=== PATIENT | male | born 1965 | race Caucasian/White ===

== ENCOUNTER 2016-12-17 07:03 | Observation (INO) | payer OTHER ==
[2016-12-08 12:00] VITALS: BMI 31.0
[~2016-12-17] VITALS: Ht 172.7 cm; Wt 92.3 kg
[~2016-12-17 07:03] MED LIST: ALBU2SYP9 INH; ASPI81TA28 PO; ATOR-26 PO; BRL90 PO; CEFAZOLIN 2000 MG/60 ML D5W IV SCH; CLB/200 PO; FURO-85 PO; ISOS30TA3 PO; LACTATED RINGER'S 1000ML 1,000 ML IV SCH; LISI-729 PO; METO-217 PO; NTRGSL/4 UT
[2016-12-17] MEDS ORDERED: BUPIVACAINE 0.5 % 5 MG/1 ML MPF 30ML VIAL ONE ×2 (07:18→07:34)
[2016-12-17] MEDS ORDERED: LIDOCAINE HCL 1% 20 ML VIAL ONE ×2 (07:18→07:34)
[2016-12-17] MEDS ORDERED: BACITRACIN 50000 UNIT VIAL ONE (07:19)
[2016-12-17] MEDS ORDERED: PROPOFOL IV EMULSION 10 MG/ML 20 ML VIAL IV ONE (07:37)
[2016-12-17] MEDS ORDERED: LIDOCAINE HCL 2% 2 ML VIAL (20MG/ML) ONE (07:37)
[2016-12-17 07:38] VITALS: BP 103/67; PULSE 54; TEMP 36.4; O2SAT 98; BMI 31.0
[2016-12-17] MEDS ORDERED: FENTANYL CITRATE INJ 50 MCG/1 ML 2 ML VIAL ONE (07:38)
[2016-12-17] MEDS ORDERED: KETAMINE HCL INJ 50 MG/ML 10 ML VIAL ONE (07:38)
[2016-12-17] MEDS ORDERED: MIDAZOLAM HCL 1 MG/ML 2ML VIAL ONE (07:38)
--- NOTE | 2016-12-17 07:54 | History and Physical ---
History & Physical Date Dec 17, 2016. Chief Complaint sob History of Present Illness The patient is a 51 year old male with complaints of sob Past Medical/Surgical History icm ef 20% rbbb chronic systolic HF, nyha class II cad hld heterozygous for factor 5 mutation h/o cva PSH hip replacement cath Additional History Hepatic Disease: No Endocrine Disorder: No Kidney Disease: No Hypertension: Yes Heart Disease: Yes Bleeding Tendencies: No Infectious Diseases: No Allergies Coded Allergies: NO KNOWN DRUG ALLERGIES (Verified Allergy, Unknown, none, 12/17/16) Home Medications Scheduled Aspirin (Aspirin Ec), 81 MG PO DAILY Atorvastatin (Lipitor), 1 TAB PO DAILY Celecoxib (CeleBREX), 1 CAP PO QDB Furosemide (Lasix), 1 TAB PO DAILY Isosorbide Mononitrate Ext Rel (Imdur Ext Rel), 0.5 TAB PO DAILY Lisinopril (Prinivil), 5 MG PO QAM Metoprolol Succinate (Toprol Xl), 50 MG PO DAILY Nitroglycerin (Nitrostat), 0.4 MG UT PRN Ticagrelor (Brilinta), 1 TAB PO BID Scheduled PRN Albuterol Sulf (Ventolin), 2 PUFF INH Q6 PRN for Shortness of Breath Physical Examination Skin: warm/dry Eyes: EOMI, sclerae normal ENT: normal ENT inspection Head: normocephalic, atraumatic Neck: supple Respiratory/Chest: lungs clear, normal breath sounds Cardiovascular: regular rate, rhythm, no edema, no murmur Abdomen / GI: normal bowel sounds Back: normal inspection Extremities: normal inspection Neurologic/Psych: alert, oriented x 3 Diagnosis icm ef 20% rbbb chronic systolic HF, nyha class II cad hld heterozygous for factor 5 mutation h/o cva ASA Classification: ASA Class II Plan of Treatment recommend biv icd
--- NOTE | 2016-12-17 10:27 | [facility] Post Operative Brief Note ---
Immediate Operative Summary Operative Date Dec 17, 2016. Pre-Operative Diagnosis ICM, CHRONIC SYSTOLIC HF, NYHA CLASS II, RBS QRS 168MS Post-Operative Diagnosis SAME Procedure(s) Performed BIV ICD WITH PERIPHERAL VENOGRAM Surgeon TAL VELAZQUEZ Managing Partner Surgeon(s) NONE Estimated Blood Loss <20CC Findings NONE Fluids (cc crystalloids) 300CC Specimens NONE Drains NONE Anesthesia 2MG VERSED, 100MCG FENTANYL, 300MG PROPOFOL, 40MG KETAMINE Complication(s) None Disposition PCU
[2016-12-17] MEDS ORDERED: ACETAMINOPHEN 325 MG TAB PO PRN (10:30)
[2016-12-17] MEDS ORDERED: OXYCODONE/ACETAMINOPHEN 5-325 TAB PO PRN (10:30)
[2016-12-17] MEDS ORDERED: NITROGLYCERIN 0.4 MG SL PER TAB CHARGE UT PRN (10:30)
--- NOTE | 2016-12-17 10:30 | Discharge Instructions ---
Discharge Instructions Date of Service Dec 17, 2016. Admission Reason for Admission: Cardiomyopathy Discharge Discharge Diagnosis / Problem: ICM Discharge Goals Goal(s): Improve function Activity Recommendations Activity Limitations: as noted below Lifting Limitations: no more than 10 pounds (DO NOT LIFT THE LEFT ELBOW OVER THE LEFT SHOULDER FOR 1 MONTH; DO NOT LIFT MORE THAN 10 POUNDS WITH THE LEFT ARM FOR 2 WEEKS) May Resume Sexual Activity: after one week Shower/Bathe: tomorrow Driving or Machine Use: resume 1 day after discharge . Instructions / Follow-Up Instructions / Follow-Up ACTIVITY RECOMMENDATIONS: * Do not raise affected arm over head for 4 weeks. SPECIAL CARE INSTRUCTIONS: * If bleeding occurs, apply direct pressure to area for 5 minutes. * Call your doctor if you have severe pain, fever, drainage or bleeding at site. * Keep dry for 24 hours. * Keep any scheduled doctor's appointment. * Implant Card - hand held device with website information given. SKIN IRRITATION: * You may experience some redness and/or swelling in the area where radiation was administered. If any skin irritation occurs, please contact your family physician. FOLLOW UP VISIT: Keep any scheduled doctor appointments. Current Hospital Diet Patient's current hospital diet: AHA Diet (Heart Healthy), Low Sodium Diet (2gm Na) Discharge Diet Recommended Diet: AHA Diet (Heart Healthy), Low Sodium Diet (2gm Na) Procedures Procedures Performed: BIV ICD WITH PERIPHERAL VENOGRAM Pending Studies Studies pending at discharge: no Medical Emergencies . Who to Call and When: Medical Emergencies: If at any time you feel your situation is an emergency, please call 911 immediately. . Non-Emergent Contact Non-Emergency issues call your: Housing Court Judge . . "Provider Documentation" section prepared by Velia Pichardo. . VTE Core Measure Inpt VTE Proph given/why not?: Treatment not indicated
--- NOTE | 2016-12-17 10:34 | Discharge Summary ---
Discharge Summary Date of Service Dec 17, 2016. Discharge Summary Admission Date: Discharge Date: Dec 18, 2016 Discharge Disposition: Home Principal Diagnosis: ICM S/P BiV ICD 12/16/2016 Secondary Diagnoses/Problems: CAD h/o PCIs LAD in 2004 followed by thrombus removal and angioplasty to LAD due to in-stent thrombosis 10/2012; s/p PCI to LAD with LULU 06/2016 Chronic systolic HF, NYHA class II RBBB QRS 166ms HLD Heterozygous for Factor 5 Mutation H/o CVA Arthritis s/p left THR Procedures: BiV ICD with peripheral venogram Medication Reconciliation Continued Medications: Albuterol Sulf (Ventolin) 2 Mg/5 Ml Syrp 2 PUFF INH Q6 PRN for Shortness of Breath Aspirin (Aspirin Ec) 81 Mg Tab 81 MG PO DAILY Atorvastatin (Lipitor) 80 Mg Tab 1 TAB PO DAILY for 30 Days, #30 TAB 5 Refills Celecoxib (CeleBREX) 200 Mg Cap 1 CAP PO QDB for 30 Days, #30 CAP 2 Refills Furosemide (Lasix) 20 Mg Tab 1 TAB PO DAILY for 90 Days, #90 TAB 1 Refill Isosorbide Mononitrate Ext Rel (Imdur Ext Rel) 30 Mg Ertab 0.5 TAB PO DAILY for 30 Days Lisinopril (Prinivil) 5 Mg Tab 5 MG PO QAM, TAB Metoprolol Succinate (Toprol Xl) 50 Mg Tabcr 50 MG PO DAILY, #30 TAB Nitroglycerin (Nitrostat) 0.4 Mg Tab 0.4 MG UT PRN, BTL Ticagrelor (Brilinta) 90 Mg Tab 1 TAB PO BID Admission Information Physical Exam (per Admitting): aaox3, NAD Supple No JVD Nrl S1/S2, no murmur CTA b/l No w/r/r soft NT/ND No edema b/l LE No focal deficits Skin intact Hospital Course Pt admitted for elective BiV ICD implant underwent procedure without any complications; Pt was supposed to be monitored overnight but insisted on being discharged home the day of the procedure because he needed to take care of his 70 year old mother. So patient had CXR prior to discharge and was discharged home the evening of procedure Total time spent on discharge = 30 This includes examination of the patient, discharge planning, medication reconciliation, and communication with other providers. Discharge Instructions ACTIVITY RECOMMENDATIONS: * Do not raise affected arm over head for 4 weeks. SPECIAL CARE INSTRUCTIONS: * If bleeding occurs, apply direct pressure to area for 5 minutes. * Call your doctor if you have severe pain, fever, drainage or bleeding at site. * Keep dry for 24 hours. * Keep any scheduled doctor's appointment. * Implant Card - hand held device with website information given. SKIN IRRITATION: * You may experience some redness and/or swelling in the area where radiation was administered. If any skin irritation occurs, please contact your family physician. FOLLOW UP VISIT: Keep any scheduled doctor appointments.
[2016-12-17] MEDS ORDERED: IV FLUIDS COMPLETED PRN (11:00)
[2016-12-17 11:54] VITALS: BP 115/75; PULSE 60; TEMP 36.4; O2SAT 97; Ht 172.7 cm; Wt 92.3 kg
--- NOTE | 2016-12-17 14:12 | Anesthesiology Progress Note ---
Anesthesia Post Op Note Date & Time Dec 17, 2016 at 14:12 Vital Signs Pain Intensity: 7.0 Vital Signs Past 12 Hours Date Time Temp Pulse Resp B/P (MAP) Pulse Ox O2 Delivery O2 Flow Rate FiO2 12/17/16 12:00 Room Air 12/17/16 11:54 36.4 60 20 115/75 97 Room Air 12/17/16 10:50 56 16 112/76 (88) 98 Room Air 12/17/16 10:45 60 16 112/74 (87) 98 Nasal Cannula 5 12/17/16 10:40 60 16 110/77 (88) 98 Nasal Cannula 5 12/17/16 10:35 64 16 106/74 (85) 98 Nasal Cannula 5 12/17/16 10:30 66 16 109/74 (86) 98 Nasal Cannula 5 12/17/16 10:27 61 16 102/67 (79) 98 Nasal Cannula 5 12/17/16 10:22 63 16 104/67 (79) 98 Nasal Cannula 5 12/17/16 07:38 36.4 54 18 103/67 (79) 98 Room Air Notes Mental Status: alert / awake / arousable, participated in evaluation Pt Amnestic to Procedure: Yes Nausea / Vomiting: adequately controlled Pain: adequately controlled Airway Patency, RR, SpO2: stable & adequate BP & HR: stable & adequate Hydration State: stable & adequate Anesthetic Complications: no major complications apparent
[2016-12-17 15:01] VITALS: BP 115/75; PULSE 60; TEMP 36.4; O2SAT 97
--- NOTE | 2016-12-17 15:09 | DIAGNOSTIC IMAGING REPORT ---
CHEST 2 VIEWS ROUTINE CLINICAL HISTORY: EXACT TIME ORDERED Evaluate for pneumothorax and lead placement COMPARISON STUDY: No previous studies for comparison. FINDINGS: There is no pneumothorax following placement of a left subclavian pacer maker/AICD. One lead tip projects over the right atrial appendage with 2 lead tips projecting over the right ventricle. There is no evidence of pulmonary edema. Mild cardiomegaly is noted. Note is made of a 7 mm nodular density within the right midlung. IMPRESSION: 1. No pneumothorax following placement of a left subclavian pacer/AICD. 2. 7 mm nodular density within the right midlung. This likely reflects summation artifact of pulmonary vessels however a nodule could appear similar. A follow-up nonemergent chest CT is recommended. Electronically signed by: Ha Conroy M.D. 12/17/2016 3:08 PM Dictated Date/Time: 12/17/2016 3:05 PM
[2016-12-17] MEDS ORDERED: TICAGRELOR 90 MG TAB PO SCH (21:00)
[2016-12-18] MEDS ORDERED: CeleBREX 200 MG CAP PO SCH (07:30)
[2016-12-18] MEDS ORDERED: ISOSORBIDE MONONITRATE 30 MG TABCR PO SCH (09:00)
[2016-12-18] MEDS ORDERED: LISINOPRIL 5 MG TAB PO SCH (09:00)
[2016-12-18] MEDS ORDERED: FUROSEMIDE 20 MG TAB PO SCH (09:00)
[2016-12-18] MEDS ORDERED: METOPROLOL SUCC 50MG EXT REL TAB PO SCH (09:00)
[2016-12-18] MEDS ORDERED: ASPIRIN 81 MG ECTAB PO SCH (09:00)
[2016-12-18] MEDS ORDERED: ATORVASTATIN 40 MG TAB PO SCH (09:00)
--- NOTE | 2016-12-30 17:03 | [facility] Operative Report ---
Operative Report Operative Date Dec 30, 2016. Pre-Operative Diagnosis ICM, CHRONIC SYSTOLIC HF, NYHA CLASS II, RBS QRS 168MS Post-Operative Diagnosis SAME Procedure(s) Performed BIV ICD WITH PERIPHERAL VENOGRAM Surgeon VELIA PICHARDO Helper Marble Finisher Surgeon(s) NONE Estimated Blood Loss <20CC Findings DATE OF OPERATION: 12/17/2016 PREOPERATIVE DIAGNOSES: Ischemic cardiomyopathy, right bundle-branch block, lchronic systolic congestive heart failure, [place] Heart Association Class 2- 3. POSTOPERATIVE DIAGNOSES: Same. PROCEDURE: Biventricular implantable cardiac defibrillator under fluoroscopic guidance along with peripheral venogram. SURGEON: Dr. Velia Pichardo. JUKEBOX ROUTEMAN: None. ANESTHESIA: Monitored anesthetic care administered via anesthesiology. Start time 08:54, end time 10:30. Total of 2 mg of Versed, 100 mcg of fentanyl 500mg propofol, 40mg ketamine, 4mg zofran; again administered via anesthesiology supervision. IV FLUIDS: 300 mL. CONTRAST: 25 mL. ANTIBIOTICS: 2 grams of Ancef. BLOOD LOSS: Less than 20 mL. COMPLICATIONS: None. CONDITION: Stable. URINE OUTPUT: Not applicable. SPECIMENS: None. FINDINGS: None. DRAINS: None. INDICATIONS: This 51-year-old gentleman who has a past medical history for ischemic cardiomyopathy with an ejection fraction of 20%, RBBB QRS 168ms, Chronic systolic HF NYHA class II, CAD h/o PCI to LAD in 2004 with thrombus removal and angioplasty secondary to ISR in 10/2012 and PCI to LAD with LULU in 2016, HLD, H/o CVA, heterozgous for Factor V mutation, arthritis. The patient was recommended biventricular implantable cardiac defibrillator. CONSENT: Consent was obtained prior to the patient going into the electrophysiology lab. The patient was explained the risks, benefits, alternatives to the procedure. Risks include but not limited to sudden cardiac , cardiac arrhythmias, cerebrovascular accident, myocardial infarction, injury to the blood vessels, chamber of the heart, lung bleeding and infection of possible clots in the arm. The patient understood these risks and agreed to the procedure as planned. Informed consent was obtained. DESCRIPTION OF PROCEDURE: The patient was brought into the electrophysiology lab in a fasting state. He was connected to continuous vehicle monitor technician. A time-out was performed to ensure patient's identity and procedure correctly. The patient received prophylactic antibiotics prior to incision. He was prepped and draped over the left infraclavicular space in normal surgical standard fashion. Monitored anesthetic care was given throughout the procedure administered under anesthesiology's supervision. [place] precautions were maintained throughout the procedure. 10 mL of 1% lidocaine, bupivacaine mixture were given in the left deltopectoral groove. Incision was made in left deltopectoral groove. Blunt dissection was performed down to try to identify the cephalic vein; however, none could be identified. We then set up to do a peripheral venogram using 20 mL of IV contrast diluted and 20 mL of saline followed by 20 mL flush to identify the axillary vein. Axillary vein was identified and 2 needle sticks was performed to gain venous access. In one access an 8-[place] sheath was inserted over the guidewire without any resistance. The dilator was removed and a second guidewire was inserted within the sheath to allow for retained venous access. The sheath was then removed. A 9.5-[place] sheath was then inserted over one of the guidewires without any resistance. The guidewire and dilator were removed. The right ventricular defibrillator lead was then advanced into the right ventricle and positioned into the right ventricular apex under fluoroscopic guidance. There was adequate pacing and sensing thresholds and no diaphragmatic stimulation with high output pacing. The 8.5-[place] sheath was peeled away and lead was fixated to the pectoralis muscle using 0 silk suture. An 8-[place] sheath was then inserted over the retained guidewire in the initially axillary stick without any resistance. The guidewire and dilator were removed. The right atrial lead was then advanced through the sheath into the right atrium and positioned into the right atrial appendage using the white J preformed J stylet curve. There was adequate pacing and sensing thresholds and no diaphragmatic stimulation at high output pacing. The 8-[place] sheath was peeled away and the lead was fixated to the pectoralis muscle using 0 silk suture. A 9.5-[place] sheath was then inserted over the separate axillary stick guidewire without any resistance. The guidewire and dilator were removed and the MPX Attain Command CS outer catheter was advanced over guidewire without any resistance into the right atrium. The guidewire and the dilator were removed. Then a diagnostic CS quadripolar catheter was advanced through the MPX sheath to obtain CS access. We accessed the coronary sinus with the diagnostic EP catheter and then advanced the MPX outer sheath over this into the coronary sinus. The diagnostic quad catheter was then removed and a balloon was inserted through the MPX outer sheath out into the coronary sinus a venogram of the coronary sinus was performed. We identified a nice posterolateral branch. We used an inner sheath Attain select II 90 SP along with a whisper wire out into the branch of the posterolateral branch and a left ventricular pacing wire lead was then advanced over the Whisper wire without any resistance. The lead was tested and we had adequate threshold and impedance. There was no diaphragmatic stimulation with high output on the LV lead. The Whisper was then removed and a stylet was placed into the LV lead to allow for some more support. We then split the inner sheath Attain select II 90 SP followed then by the MPX outer sheath under fluoroscopic guidance. Then I peeled away the 9.5-[place] outer sheath under fluoroscopic guidance. The left ventricular pacing lead was then fixated to the pectoralis muscle using 0 silk suture. A defibrillator pocket was created over the pectoralis muscle within the pectoralis fascia using blunt dissection. The pocket was inspected for hemostasis and flushed with copious amounts of bacitracin saline wash. The defibrillator generator was then attached to the leads making sure that the pins were in appropriate position, passed the set screws and the set screws were all tightened. Then, the defibrillator was then placed in the pocket, making sure that the leads were lying flat beneath the device. The pocket was then closed in a 3-layer fashion using a 2-0 Vicryl interrupted suture followed by a 3-0 interrupted suture followed by a 4-0 Monocryl running stitch and Dermabond was applied as well as a pressure dressing. EQUIPMENT: 1. The defibrillator generator was a Medtronic Claria MRI quad SLAB CONDITIONER SUPERVISOR-D SureScan, [id number], serial #[id number]. 2. Right atrial lead Medtronic 5076-52 cm, serial # [id number]. 3. Right ventricular lead Medtronic 6935M-62, serial number [id number]. 4. Left ventricular lead, Medtronic 4598-88 cm, serial #[id number]. INTRAOPERATIVE TESTIN. Right atrial lead P-wave 3.8 millivolts, impedance 1018 ohms, threshold 0.9 volts at 1.0 milliamps. 2. Right ventricular lead: R-wave is 4.4 millivolts, impedance 934 ohms, threshold 0.3 volts at 0.4 milliamps. 3. Left ventricular lead programmed bipolar, LV3-LV4, impedance 1125 ohms, threshold 1.3 volts at 1.2 milliamps. FINAL MEASUREMENTS THROUGH THE DEVICE: 1. Right atrial lead: P-wave 2.0 millivolts, impedance 722 ohms, threshold 0.75 volts at 0.4 milliseconds. 2. Right ventricular lead: R-wave 4.9 millivolts, impedance 703 ohms, threshold 0.5 volts at 0.4 milliseconds. 3. Left ventricular lead programmed bipolar, LV4-LV1, impedance 836 ohms, threshold 0.75 volts at 0.4 milliseconds. FINAL PARAMETERS: DDDR 60/140, VF zone at 200 beats per minute with a detection interval 30/40. The right atrial and right ventricle is programmed amplitude 3.5 volts, pulse width 0.4 milliseconds, sensitivity 0.3 millivolts. The left ventricular amplitude is 0.75 volts, pulse width 0.4 milliseconds. IMPRESSION: Successful implantation of a biventricular implantable cardiac defibrillator under fluoroscopic guidance along with peripheral venogram secondary to ischemic cardiomyopathy, right bundle-branch block (QRS 168ms), and chronic systolic heart failure, [place] Heart Association Class 2-3. PLAN: Monitor patient overnight, 12-lead ECG, chest x-ray. He is not allowed to lift the left elbow over the left shoulder for 1 month. He cannot lift more than 10 pounds with the left arm for 2 weeks. He can shower in 2 days, let water run over the incision, do not scrub it, he should follow up in our [place] office in 7-10 days for device and wound check. Fluids 300CC Specimens NONE Drains NONE Anesthesia 2MG VERSED, 100MCG FENTANYL, 300MG PROPOFOL, 40MG KETAMINE Disposition PCU I attest to the content of the Intraoperative Record and any orders documented therein. Any exceptions are noted below.
== END 2016-12-17 15:38 | disposition home or self-care (01) ==
LOC: C.ACU 07:03 → C.2E 07:30 → EDSEX 08:00 → ENRESERV 10:05
PROVIDERS: ADMIT Internal Medicine; ATTEND Internal Medicine
DX: I25.5 Ischemic cardiomyopathy (principal); I45.10 Unspecified right bundle-branch block; I50.22 Chronic systolic (congestive) heart failure; I25.10 Atherosclerotic heart disease of native coronary artery without angina pectoris; E78.5 Hyperlipidemia, unspecified; D68.51 Activated protein C resistance; Z86.73 Personal history of transient ischemic attack (TIA), and cerebral infarction without residual deficits; Z79.82 Long term (current) use of aspirin; Z79.899 Other long term (current) drug therapy; Z96.642 Presence of left artificial hip joint; I48.91 Unspecified atrial fibrillation